=== PATIENT | female | born 1945 | race Caucasian/White ===

== ENCOUNTER 2019-02-01 14:30 | Emergency (ER) ==
[2019-02-01 14:40] VITALS: TEMP 98.6; BMI 24.0
--- NOTE | 2019-02-01 14:56 | ED.PDOC ---
General ED Provider: Dr. MANJU VALERO Chief Complaint: Head Laceration Stated Complaint: 73 y old sustained a scalplac eration in left fronto- temporal region as she apparently fellNo LOC reported or convulsions.No neuro deficitsShe is in acervical collar that will be changed after CT cervical spine and head. Time Seen by Physician: 14:45 Mode of Arrival: Walk-In Information Source: Patient Exam Limitations: No limitations Primary Care Provider: KATHARINA CERVANTES Nursing and Triage Documentation Reviewed and Agree: Yes Does patient meet sepsis criteria?: No System Inflammatory Response Syndrome: Not Applicable Sepsis Protocol: For patient's 13 years and over: Temp is 96.8 and below OR 101 and greater Pulse >90 BPM Resp >20/minute Acutely Altered Mental Status Are patient's symptoms suggestive of a new infection, such as: -Pneumonia -Skin, Soft Tissue -Endocarditis -UTI -Bone, Joint Infection -Implantable Device -Acute Abdominal Infection -Wound Infection -Meningitis -Blood Stream Catheter Infection -Unknown Trauma/Injury Complaint Exam - Facial Injury Complaint/Exam Location of Pain: Reports: Forehead Mechanism of Injury: Reports: Trauma Onset/Duration: laceration Symptoms Are: Still present Onset of Pain: Reports: Immediate Initial Severity: Mild Current Severity: Mild Location: Reports: Discrete Character: Reports: Aching Alleviating: Reports: None Aggravating: Reports: None Associated Signs and Symptoms: Reports: Swelling, Redness, Bruising Differential Diagnoses: Abrasion, Contusion, Fracture, Laceration Review of Systems - Review Of Systems Constitutional: Reports: No symptoms Eyes: Reports: No symptoms Ears, Nose, Mouth, Throat: Reports: No symptoms Respiratory: Reports: No symptoms Cardiac: Reports: No symptoms GI: Reports: Blood streaked bowels : Reports: No symptoms Musculoskeletal: Reports: No symptoms Skin: Reports: Bruising, Change in color, Lesions Neurological: Reports: No symptoms Endocrine: Reports: No symptoms Hematologic/Lymphatic: Reports: No symptoms All Other Systems: Reviewed and Negative Past Medical History - Past Medical History Previously Healthy: Yes Endocrine: Reports: None Cardiovascular: Reports: None Respiratory: Reports: None Hematological: Reports: None Gastrointestinal: Reports: None Genitourinary: Reports: None Neuro/Psych: Reports: None, Unknown Musculoskeletal: Reports: None Cancer: Reports: None Last Menstrual Period: N/A - Surgical History General Surgical History: Reports: None - Family History Family History: Reports: None - Social History Smoking Status: Never smoker, Heavy tobacco smoker Hx Substance Use: No Alcohol Screening: Occasionally - Immunizations Tetanus Shot up to Date: No (UNKNOWN) Physical Exam - Physical Exam Appearance: Well-appearing Ill-appearing: Mild Pain Distress: Mild Eyes: SUSAN, EOMI, Conjunctiva clear ENT: Ears normal, Nose normal, Oropharynx normal Neck: Supple Respiratory: Airway patent, Breath sounds clear, Breath sounds equal Cardiovascular: RRR, Pulses normal, No rub, No murmur GI/: Soft, Nontender, No masses, Bowel sounds normal, No Organomegaly Musculoskeletal: Normal strength, ROM intact, No edema, No calf tenderness Skin: Warm, Dry, Normal color Neurological: Sensation intact, Motor intact, Cranial nerves intact, Alert, Oriented, Alert to verbal Psychiatric: Affect appropriate Critical Care Note - Critical Care Note Total Time (mins): 0 Course - Course Hematology/Chemistry: 02/01/19 16:10 Orders, Labs, Meds: Lab Review 02/01/19 16:10 WBC 8.02 RBC 4.59 Hgb 12.3 Hct 40.0 MCV 87.1 MCH 26.8 L MCHC 30.8 L RDW Coeff of Caty 17.4 H Plt Count 251 Immature Gran % (Auto) 0.2 Neut % (Auto) 65.8 Lymph % (Auto) 21.6 Clay % (Auto) 11.5 H Eos % (Auto) 0.7 Baso % (Auto) 0.2 Immature Gran # (Auto) 0.0 Neut # (Auto) 5.3 Lymph # (Auto) 1.7 Clay # (Auto) 0.9 Eos # (Auto) 0.1 Baso # (Auto) 0.0 Orders Category Date Time Status EKG-(ED ONLY) Stat CARDIO 02/01/19 16:03 Ordered Wound care [ED WOUND CARE] .ONCE EMERGENCY 02/01/19 15:59 Active CBC W/ AUTO DIFF Stat LAB 02/01/19 16:10 Completed COMPREHENSIVE METABOLIC PANEL Stat LAB 02/01/19 16:10 Received UA [URINALYSIS C & S IF INDICATED] Stat LAB 02/01/19 16:03 Uncollected CHEST, 1V AP ONLY Stat RADS 02/01/19 16:[address] CERVICAL SPINE W/O CONTRAST Stat RADS 02/01/19 14:[address] HEAD W/O CONTRAST Stat RADS 02/01/19 14:57 Completed Vital Signs: Temp Pulse Resp BP Pulse Ox 02/01/19 16:09 122/64 02/01/19 14:31 98.6 F 96 H 20 172/76 H 96 Departure - Departure Time of Disposition: 16:21 Disposition: HOME SELF-CARE Discharge Problem: Skin abrasion Instructions: Abrasion (ED) Condition: Good Pt referred to PMD for follow-up: Yes IPMP verified?: No Additional Instructions: Use OTC Bacitracin ointment tid for scal;p abrasion x 7 days. Allergies/Adverse Reactions: Allergies codeine Adverse Reaction (Verified 02/01/19 14:48) wheat Adverse Reaction (Verified 02/01/19 14:48) Home Medications: Ambulatory Orders Aspirin [Aspirin EC] 81 mg PO DAILY 02/01/19 Atorvastatin Calcium 20 mg PO DAILY 02/01/19 Carvedilol 3.125 mg PO BID 02/01/19 Clopidogrel Bisulfate [Clopidogrel] 75 mg PO DAILY 02/01/19 Empagliflozin/Linagliptin [Glyxambi 25 mg-5 mg Tablet] 1 each PO DAILY 02/01/19 Ferrous Sulfate [Iron] 325 mg PO DAILY 02/01/19 Gabapentin 300 mg PO TID 02/01/19 Isosorbide Mononitrate [Isosorbide Mononitrate ER] 60 mg PO DAILY 02/01/19 Levothyroxine Sodium 112 mcg PO DAILY 02/01/19 Losartan Potassium 100 mg PO DAILY 02/01/19 Memantine HCl [Namenda Xr] 14 mg PO DAILY 02/01/19 Metformin HCl 1,000 mg PO BID 02/01/19 Pantoprazole Sodium 40 mg PO DAILY 02/01/19 Pioglitazone HCl 30 mg PO DAILY 02/01/19 Sertraline HCl 25 mg PO DAILY 02/01/19 Disposition Discussed With: Patient, Family
--- NOTE | 2019-02-01 16:04 | CT ---
EXAM: CT BRAIN HISTORY: Fall TECHNIQUE: CT brain without intravenous contrast. 5-mm axial sections with Reformations. COMPARISON: None FINDINGS: There is generalized atrophy. There is moderate periventricular and deep white matter low attenuatio n which although nonspecific is suggestive of chronic microvascular ischemic change. Brain otherwise is unremarkable without evidence of hemorrhage or large vessel distribution recent is chemic infarction. There is no suggestion of acute hydrocephalus or subdural fluid collection. No m ass or mass effect. Cranium has no acute finding. Mastoid processes are aerated. The visualized paranasal sinuses are clear. IMPRESSION: No acute intracranial process. No skull fracture.
--- NOTE | 2019-02-01 16:09 | CT ---
EXAM: CT cervical spine. HISTORY: Fall, right temporal laceration. TECHNIQUE: CT cervical spine without contrast. Detailed axial sections. Coronal and sagittal re-fo rmations. COMPARISON: None FINDINGS: No fracture or subluxation is seen. Bones appear demineralized. There is diffuse degenerative disc and facet disease leading to multilevel mild central canal and neural foraminal stenosis. Lateral masses of C1 and C2 are normally aligned and the odontoid process is intact. No paraspinal hematoma IMPRESSION: 1. No acute fracture or subluxation.
[2019-02-01 16:10] VITALS: BP 122/64
--- NOTE | 2019-02-01 17:39 | DI ---
EXAM: One-view chest HISTORY: Cough TECHNIQUE: Single frontal view the chest was obtained. Comparison CT scan of the chest dated 01/06/2017. FINDINGS: The heart is normal size. Calcified pleural plaques are again seen along the inferior rig ht hemithorax. The lungs are clear. The pulmonary vasculature appears normal. There is no pleural separation. The osseous structures are normal. IMPRESSION: Stable appearance of calcified plaques seen within the right hemithorax. Otherwise no active cardiopulmonary disease.
== END 2019-02-01 17:12 | disposition home or self-care (01) ==
LOC: ED 14:30
DX: S00.81XA Abrasion of other part of head, initial encounter (principal); W19.XXXA Unspecified fall, initial encounter; F17.210 Nicotine dependence, cigarettes, uncomplicated
CPT/HCPCS: 36415; 80053; 85025; 93005; 93010; 99283